=== PATIENT | female | born 1960 | race African-American/Black ===

== ENCOUNTER 2023-10-06 16:48 | Emergency (ER) | payer OTHER ==
[~2023-10-06] VITALS: Ht 162.6 cm; Wt 79.5 kg
[2023-10-06 19:57] VITALS: BP 145/71; PULSE 76; RESP 18; TEMP 98
[2023-10-06] MEDS ORDERED: AZIT250T9 PO (20:04)
== END 2023-10-06 20:19 | disposition still patient (30) ==
LOC: EMS 16:49
DX: J02.9 Acute pharyngitis, unspecified (principal); Z98.51 Tubal ligation status; Z98.890 Other specified postprocedural states
CPT/HCPCS: 87430; 99283